=== PATIENT | female | born 1990 | race Caucasian/White ===

== ENCOUNTER 2018-04-27 06:48 | Inpatient (IN) | payer BC ==
[~2018-04-27] VITALS: Ht 160 cm; Wt 94.5 kg
[2018-05-04] MEDS ORDERED: PRENTAB26 PO (16:36)
[2018-05-07 08:47] VITALS: Ht 160 cm; Wt 94.5 kg
[2018-05-07] MEDS ORDERED: LACTATED RINGER'S 1000ML 1,000 ML IV PRN (09:15)
[2018-05-07 09:41] LABS: HEMATOCRIT 35.6 % (37-47); HEMOGLOBIN 12.3 g/dL (12.0-16.0); MEAN CELL VOLUME 88.6 fL (80-100); MEAN CORPUSCULAR HEMOGLOBIN 30.6 pg (25-34); MEAN CORPUSCULAR HGB CONC 34.6 g/dl (32-36); MEAN PLATELET VOLUME 11.3 fL (7.4-10.4); PLATELET COUNT 168 K/uL (130-400); RED CELL DISTRIBUTION WIDTH CV 13.1 % (11.5-14.5); RED CELL DISTRIBUTION WIDTH SD 41.9 fL (36.4-46.3); WHITE BLOOD COUNT 10.08 K/uL (4.8-10.8)
--- NOTE | 2018-05-07 09:41 | Progress Note ---
Progress Note Date of Service May 07, 2018. Progress Note Admit note 28 F P0000 at 41.3 weeks admitted for induction of labor for post-dates. GBS is negative. FHT Cat 1 with no contractions. Cervix 1/70/-2/vertex/mid- position/firm/intact. EFW [address] Cytotec for ripening.
[2018-05-07] MEDS ORDERED: MISOPROSTOL 25 MCG TAB PV ONE (09:45)
[2018-05-07] MEDS ORDERED: NURSING VERBAL MED ORDER ONE (17:00)
[2018-05-07] MEDS ORDERED: BUPIVACAINE 0.25% 30 ML VIAL ONE (17:55)
[2018-05-07] MEDS ORDERED: EpHEDrine SULFATE INJ 50 MG/ML AMP ONE (17:55)
[2018-05-07] MEDS ORDERED: FENTANYL 2MCG/ML ROPIV 1.25MG/ML 100ML BAG ONE (17:56)
[2018-05-07] MEDS ORDERED: FENTANYL CITRATE INJ 50 MCG/1 ML 2 ML VIAL ONE (17:56)
[2018-05-07] MEDS: LACTATED RINGER'S 1000ML 1,000 ML IV SCH ×3 (18:25→23:37)
[2018-05-07] MEDS ORDERED: LACTATED RINGER'S 1000ML 500 ML IV PRN (19:07)
[2018-05-07] MEDS ORDERED: EpHEDrine SULFATE INJ 50 MG/ML AMP IV PRN (19:15)
[2018-05-07] MEDS ORDERED: NALOXONE HCL INJ 0.4 MG/1 ML VIAL/CARP IV PRN (19:15)
[2018-05-07] MEDS: ONDANSETRON INJ 2 MG/ML 2 ML VIAL IV PRN (21:39)
[2018-05-07] MEDS: FENTANYL 2MCG/ML ROPIV 1.25MG/ML 100ML BAG EPI PRN (22:43)
[2018-05-08] MEDS: ONDANSETRON INJ 2 MG/ML 2 ML VIAL IV PRN (01:28)
[2018-05-08] MEDS: FENTANYL 2MCG/ML ROPIV 1.25MG/ML 100ML BAG EPI PRN (02:27)
[2018-05-08] MEDS ORDERED: OXYTOCIN 30 UNITS/500ML NSS IV ONE (03:06)
[2018-05-08] MEDS ORDERED: BENZOCAINE 20% AER SPR 82.5 GM CAN EXT PRN (05:30)
[2018-05-08] MEDS ORDERED: OXYTOCIN 30 UNITS/500ML NSS IV PRN (05:30)
[2018-05-08] MEDS ORDERED: HYDROCORTISONE ACETATE 25 MG SUPP PR PRN (05:30)
[2018-05-08] MEDS ORDERED: LANOLIN OINT EXT PRN (05:30)
[2018-05-08] MEDS ORDERED: SUPERCREAM 0.870 % 15GM JAR EXT PRN (05:30)
--- NOTE | 2018-05-08 05:40 | Vaginal Delivery Summary ---
Vaginal Delivery Summary Delivery Note live male with MLE at delivery due to mild shoulder dystocia. Apgars 7/8 weight 9-11.8. Cord blood collection done and spontaneous delivery of intact placenta. Second degree midline episiotomy repaired with 3/0 Vicryl suture. EBL 300 ml. Final sponge, needle and instrument count are correct. Mom and baby stable.
[2018-05-08] MEDS ORDERED: NURSING VERBAL MED ORDER ONE ×3 (06:15→15:30)
[2018-05-08] MEDS ORDERED: ACETAMINOPHEN/CODEINE 300/30MG TAB ONE (06:34)
[2018-05-08] MEDS ORDERED: ACETAMINOPHEN/CODEINE 300/30MG TAB PO PRN (06:45)
[2018-05-08] MEDS: DOCUSATE SODIUM 100 MG CAP PO SCH ×2 (08:08→19:29)
[2018-05-08] MEDS: FERROUS SULFATE 325 MG TAB PO SCH (08:08)
[2018-05-08] MEDS: PRENATAL VITAMIN TAB PO SCH (08:09)
--- NOTE | 2018-05-08 08:20 | Anesthesia Procedure Note ---
Anesthesia Epidural Removal Nt Date & Time May 08, 2018 at 08:20 Vital Signs Pain Intensity: 6.0 Notes Mental Status: alert / awake / arousable, participated in evaluation Nausea / Vomiting: adequately controlled Pain: adequately controlled Airway Patency, RR, SpO2: stable & adequate BP & HR: stable & adequate Hydration State: stable & adequate Neuraxial Anesthesia: was administered, sensory block is resolving Anesthetic Complications: no major complications apparent, pt satisfied with anesthetic care Epidural: removed without complications, with tip intact
[2018-05-08 10:50] VITALS: BP 137/82; PULSE 85; TEMP 36.6
[2018-05-08] MEDS: ACETAMINOPHEN 325 MG TAB PO PRN ×2 (13:56→19:31)
[2018-05-08 15:00] VITALS: BP 142/86; PULSE 81; TEMP 36.7
[2018-05-08] MEDS: IBUPROFEN 600 MG TAB PO PRN ×2 (15:45→21:22)
[2018-05-08 19:30] VITALS: BP 131/77; PULSE 90; TEMP 36.3; O2SAT 100
--- NOTE | 2018-05-09 00:30 | OB/GYN Progress Note ---
[employer] BUSINESS OBJECTS CONSULTANT Progress Note Date of Service: May 09, 2018. I consented her for HIV testing last night. She had the testing completed. Informed her about the results: Negative Last 24 Hours Test 05/08/18 22:59 HIV (1&2) Ab and P24 Ag, 4th Gener NEG All questions were answered
[2018-05-09] MEDS: ACETAMINOPHEN 325 MG TAB PO PRN ×4 (00:55→23:13)
[2018-05-09 00:58] VITALS: BP 136/85; PULSE 82; TEMP 36.5; O2SAT 99
[2018-05-09 04:20] VITALS: BP 133/83; PULSE 87; TEMP 36.7; O2SAT 99
[2018-05-09] MEDS: IBUPROFEN 600 MG TAB PO PRN ×3 (04:28→20:06)
[2018-05-09 06:36] LABS: HEMATOCRIT 29.7 % (37-47); HEMOGLOBIN 10.1 g/dL (12.0-16.0)
[2018-05-09] MEDS: FERROUS SULFATE 325 MG TAB PO SCH (08:31)
[2018-05-09] MEDS: PRENATAL VITAMIN TAB PO SCH (08:31)
[2018-05-09] MEDS: DOCUSATE SODIUM 100 MG CAP PO SCH ×2 (08:31→19:58)
[2018-05-09 08:35] VITALS: BP 132/85; PULSE 71; TEMP 36.7; O2SAT 98
[2018-05-09] MEDS ORDERED: DIPHTHERIA/TETANUS/PERTUSSIS 0.5 ML SYR/VIAL IM. ONE (09:00)
[2018-05-09] MEDS ORDERED: MEASLES, MUMPS & RUBELLA VIRUS VIAL SQ. ONE (09:00)
--- NOTE | 2018-05-09 09:55 | OB/GYN Progress Note ---
ENTERPRISE APPLICATION ADMINISTRATOR Progress Note Date of Service May 09, 2018. Subjective conversation w/ patient, physical exam Ambulation: ambulating normally Voiding: no voiding problems Passing Gas: Yes Diet Tolerance: Regular Diet Feeding Type: Breast Feeding Objective Vital Signs Date Time Temp Pulse Resp B/P (MAP) Pulse Ox O2 Delivery O2 Flow Rate FiO2 05/09/18 04:20 36.7 87 20 133/83 (100) 99 Room Air 05/09/18 00:58 36.5 82 20 136/85 (102) 99 Room Air 05/09/18 00:58 Room Air 05/08/18 19:30 36.3 90 20 131/77 (95) 100 Room Air 05/08/18 19:30 Room Air 05/08/18 15:00 36.7 81 18 142/86 (104) Room Air 05/08/18 10:50 36.6 85 18 137/82 (100) Room Air 05/08/18 10:50 Room Air Physical Exam General Appearance: WELL-APPEARING, NO APPARENT DISTRESS Abdomen: non tender, soft Fundus: Firm Extremities: non-tender, normal inspection, + pedal edema Laboratory Results Last 24 Hours Test 05/08/18 22:59 05/09/18 06:03 HIV (1&2) Ab and P24 Ag, 4th Gener NEG Hemoglobin 10.1 g/dL Hematocrit 29.7 % Assessment and Plan Post- Day Number: 1 Continue Routine Care: tent d/c in AM
[2018-05-09 17:20] VITALS: BP 141/87; PULSE 79; TEMP 36.6; O2SAT 99
[2018-05-09] MEDS ORDERED: BISACODYL 5 MG TABEC PO SCH (20:00)
[2018-05-10] VITALS (7 sets, daily range): BP systolic 136–155; BP diastolic 71–92; PULSE 76–89; TEMP 36.5–36.7; O2SAT 98–99
[2018-05-10] MEDS: IBUPROFEN 600 MG TAB PO PRN ×4 (03:38→18:40)
[2018-05-10] MEDS ORDERED: BISACODYL 10 MG SUPP PR PRN (07:00)
--- NOTE | 2018-05-10 07:53 | Discharge Instructions ---
Discharge Instructions Date of Service May 10, 2018. Admission Reason for Admission: Induction Discharge Discharge Diagnosis / Problem: Discharge Goals Goal(s): Routine recovery after delivery Medications Continue Dispensed Medications: supercream, dermaplast, lansinoh Activity Recommendations Activity Limitations: as noted below ACTIVITY RECOMMENDATIONS: * Gradual return to full activity over the next 2-3 weeks. * No lifting - nothing heavier than baby over the next 2-3 weeks. * Do not engage in vigorous exercise, sexual activity or sports until cleared by your physician. * Do not drive or operate any motorized equipment until cleared by your physician. * You may shower/bathe daily. BREAST CARE: If you are not breast feeding: * Wear a supportive bra 24 hours a day for one to two weeks. * Avoid stimulating your breasts and nipples as much as possible during the first few weeks after delivery. * When taking a shower, have the warm water hit your back, not breasts. * When your breasts feel full, apply ice packs. Usually three to four times a day helps ease the discomfort. * Take a mild pain medication (Tylenol/Motrin) when you are uncomfortable. If breast feeding: * Use breast milk to lubricate nipples. Lansinoh cream may be used for sore nipples. You do not need to remove cream prior to breast feeding. If using a different brand of cream, check the label for directions regarding removal of cream prior to nursing. * Wear a supportive bra. * If having problems with breasts or breast feeding, call a business analyst consultant or your health care provider. EPISIOTOMY CARE: After delivery, if you have an episiotomy (stitches), the following steps will ease discomfort and aid healing. * For the first 24 hours after delivery, place ice packs next to your episiotomy to help reduce swelling. * After the first 24 hour-period, sitz baths, either portable or in the tub, are suggested. A shower with a shower arm sprayed over the episiotomy may be comforting. * Marlyn care should be done after each voiding and bowel movement. Squirt warm water from a plastic bottle over the perineum (region of the body between the anus and urinary opening) and pat dry. * Use Dermoplast to ease discomfort. Shake container. [place] directly over the episiotomy. * Place a Tucks on a clean sanitary pad next to your episiotomy. OVER THE COUNTER MEDICATION: * For discomfort or pain, you may use Acetaminophen (Tylenol), Ibuprofen (Advil ), or Naproxen (Aleve) following the package directions. * For constipation you may use Colace following the package directions. SPECIAL CARE INSTRUCTIONS: When you are discharged from the hospital, it is important for you to follow the instructions listed below: * During the first week at home, you should be able to care for yourself and your baby. In addition, the usual light household activities are encouraged. * Limit your activities to the way you feel. Do not try to clean the house or move furniture. Be sensible. * If you actively engage in sports and have done so up until the time of your delivery, you may resume these activities as soon as you feel able. This may take up to one month or even longer. Use good judgment. * Continue to take your vitamins for at least six weeks after the of your baby. * Your diet need not be limited unless you were on a special diet before your delivery. Breast-feeding mothers need around 2500 calories per day and at least 64-80 ounces of fluid per day (8 to 10 glasses). * You should eat foods from the four major food groups. Crash diets or fad diets are to be avoided. Eating lean meats, fresh fruits and vegetables, low-fat dairy products, high fiber foods and a regular exercise program, will help you get back to your pre- weight without putting your health at risk. * Constipation is sometimes a problem after delivery. Take a mild laxative as needed. If breast feeding, Milk of Magnesia is acceptable to use. You may use a suppository or Fleets enema if no episiotomy. * A daily shower or tub bath is suggested. Be sure to thoroughly and gently dry the perineum. * A bloody vaginal discharge will usually continue until around four weeks post . A small amount of bleeding may continue for as long as six weeks. Vaginal discharge changes from the bright red bleeding after delivery to pink then brownish and finally yellowish-pink before becoming white and disappearing. * Bleeding may increase with activity. Your first period may come in 4-8 weeks. If you are breast feeding, your period may be delayed even longer. * [place] (sex) can begin whenever both you and your partner feel comfortable and do not have any form of genital infection. It is recommended that you wait until after your return appointment and discuss with your physician. If you have questions, please talk to your health care practitioner. A condom should be used to prevent infection and . * Foreplay, gentle intercourse and lubrication is very important the first several times to prevent pain. A water-based lubricant such as K-Y jelly or Astroglide may be used. * Tampons may be used six weeks after delivery. * Douching should be avoided for 6 weeks after delivery. * If you have RH negative blood and your baby is RH positive, you will receive RHOGAM by injection prior to discharge. The nurse will give you a card to keep with you that has the date and place that you received RHOGAM after delivery. * During your care, you had a Rubella screen done to check for the presence of rubella antibodies in your blood. If your test was negative, you will receive a Rubella vaccine prior to discharge. This vaccine may cause a fever, soreness at the injection site and flu-like symptoms. If these symptoms persist, notify your health care practitioner. is not advised for three months after a Rubella vaccine. There is a higher chance of having a baby with defects if conceived within three months of getting the vaccine. * If you were discharged 24 hours from delivery or before 48 hours: Visiting nurses will come to your home 48 hours after discharge to assess you and your baby. The visiting nurse will meet with you while you are in the hospital to arrange a time and get directions to your home. * Verbalizes understanding of car seat law as reviewed with patient nursing. * Car Seat hand-out given and reviewed with patient by nursing. * Shaken baby information reviewed with patient by nursing. Call you doctor if: * Heavy bleeding (saturating several pads an hour) or passing clots the size of your fist. * A fever >101 degrees F (38.3 degrees C) on two occasions four hours apart and/or chills. * Unusual pain in the pelvic or vaginal areas. * "Baby Blues" lasting longer than two weeks. If you have any questions or concerns, call your health care practitioner at . FOLLOW-UP VISIT: * Please call the office at to schedule a 6 week examination. It is important you keep this appointment. * It is important for you to make arrangements for either yearly or twice yearly check-ups thereafter. . Current Hospital Diet Patient's current hospital diet: Regular OB Diet Discharge Diet Recommended Diet: Regular Diet Pending Studies Studies pending at discharge: no Medical Emergencies . Who to Call and When: Medical Emergencies: If at any time you feel your situation is an emergency, please call 911 immediately. . Non-Emergent Contact Non-Emergency issues call your: Specialist Call Non-Emergent contact if: temperature is above 100.5, your pain is not controlled, your pain is worsening, your pain is unusual for you . . "Provider Documentation" section prepared by Arline Terrazas. .
--- NOTE | 2018-05-10 08:07 | OB/GYN Progress Note ---
CONTRACT OFFICER Progress Note Date of Service: May 10, 2018. Patient is seen and examined. She feels well, no complaints. Ambulating without dizziness Voiding without difficulty Tolerating regular diet with out N&V Bleeding is minimal No fever/ chills/ CP/ SOB/ N&V/ Leg pain Breast feeding without problems Baby is staying Date Time Temp Pulse Resp B/P (MAP) Pulse Ox O2 Delivery O2 Flow Rate FiO2 05/10/18 00:45 99 Room Air 05/10/18 00:45 36.6 80 18 138/87 (104) 99 Room Air 05/09/18 17:20 99 Room Air 05/09/18 17:20 36.6 79 18 141/87 (105) 99 Room Air 05/09/18 08:35 36.7 71 18 132/85 (101) 98 Room Air Test 05/07/18 09:27 05/08/18 22:59 05/09/18 06:03 White Blood Count 10.08 Red Blood Count 4.02 L Hemoglobin 12.3 10.1 L Hematocrit 35.6 L 29.7 L Mean Corpuscular Volume 88.6 Mean Corpuscular Hemoglobin 30.6 Mean Corpuscular Hemoglobin Concent 34.6 RDW Standard Deviation 41.9 RDW Coefficient of Variation 13.1 Platelet Count 168 Mean Platelet Volume 11.3 H HIV (1&2) Ab and P24 Ag, 4th Gener NEG PE: General: Alert, orientedx3, NAD Abd: soft, NT, fundus firm, below Umbilicus Perineum intact, Lochia rubra minimal Ext; NT, no edema AP: 28 yo s/p , ppd# 2 VSS Afebrile doing well Continue routine care until d/c Discussed when to call All questions were answered D/C home /nesting and f/u in office
[2018-05-10] MEDS ORDERED: MAGNESIUM HYDROXIDE SUSP 30 ML UDC PO ONE (08:15)
[2018-05-10] MEDS: DOCUSATE SODIUM 100 MG CAP PO SCH ×2 (08:16→19:56)
[2018-05-10] MEDS: FERROUS SULFATE 325 MG TAB PO SCH (08:16)
[2018-05-10] MEDS: PRENATAL VITAMIN TAB PO SCH (08:16)
[2018-05-10] MEDS: ACETAMINOPHEN 325 MG TAB PO PRN ×2 (15:22→21:41)
[2018-05-10 18:22] LABS: BASO % 0.2 %; BASO ABS # 0.02 K/uL (0-0.2); EOS % 1.3 %; EOS ABS # 0.17 K/uL (0-0.5); HEMOGLOBIN 10.3 g/dL (12.0-16.0); LYMPH % 19.3 %; LYMPH ABS # 2.54 K/uL (1.2-3.4); MEAN CELL VOLUME 89.3 fL (80-100); MEAN CORPUSCULAR HEMOGLOBIN 30.7 pg (25-34); MEAN CORPUSCULAR HGB CONC 34.3 g/dl (32-36); MEAN PLATELET VOLUME 10.9 fL (7.4-10.4); MONO % 4.3 %; MONO ABS # 0.56 K/uL (0.11-0.59); NEUT % 74.1 %; NEUT ABS # 9.74 K/uL (1.4-6.5); PLATELET COUNT 180 K/uL (130-400); RED CELL DISTRIBUTION WIDTH CV 13.2 % (11.5-14.5); WHITE BLOOD COUNT 13.13 K/uL (4.8-10.8)
[2018-05-10 18:44] LABS: ALBUMIN 2.6 gm/dl (3.4-5.0); CALCIUM 8.9 mg/dl (8.5-10.1); CREATININE 0.65 mg/dl (0.60-1.20); POTASSIUM 3.9 mmol/L (3.5-5.1); TOTAL PROTEIN 6.4 gm/dl (6.4-8.2)
[2018-05-10] MEDS: LABETALOL HCL 100 MG TAB PO SCH (18:53)
--- NOTE | 2018-05-10 23:16 | OB/GYN Progress Note ---
ROOFER HELPER VINYL COATING Progress Note Date of Service: May 10, 2018. Patient was discharged [facility] this morning but her BP's were elevated this afternoon Work up was done and started on Labetalol 50 mg bd She feels well no complaints No JAMES/Change in vision/ N&V No dysuria Date Time Temp Pulse Resp B/P (MAP) Pulse Ox O2 Delivery O2 Flow Rate FiO2 05/10/18 19:40 98 Room Air 05/10/18 19:40 36.7 89 18 145/85 (105) 98 Room Air 05/10/18 17:25 153/90 (111) 05/10/18 17:25 154/84 (107) 05/10/18 16:45 36.5 79 16 05/10/18 16:12 155/83 (107) 05/10/18 16:10 99 Room Air 05/10/18 16:10 36.7 76 18 155/92 (113) 99 Room Air 05/10/18 08:17 36.5 79 16 136/87 (103) 99 Room Air 05/10/18 00:45 99 Room Air 05/10/18 00:45 36.6 80 18 138/87 (104) 99 Room Air Last 24 Hours Test 05/10/18 18:08 05/10/18 18:15 Urine Color YELLOW Urine Appearance CLEAR Urine pH 6.0 Urine Specific [place] 1.021 Urine Protein TRACE Urine Glucose (UA) NEG Urine Ketones NEG Urine Occult Blood 2+ Urine Nitrite NEG Urine Bilirubin NEG Urine Urobilinogen NEG Urine Leukocyte Esterase MODERATE Urine WBC (Auto) 10-30 /hpf Urine RBC (Auto) >30 /hpf Urine Hyaline Casts (Auto) 5-10 /lpf Urine Epithelial Cells (Auto) 5-10 /lpf Urine Bacteria (Auto) NEG White Blood Count 13.13 K/uL Red Blood Count 3.36 M/uL Hemoglobin 10.3 g/dL Hematocrit 30.0 % Mean Corpuscular Volume 89.3 fL Mean Corpuscular Hemoglobin 30.7 pg Mean Corpuscular Hemoglobin Concent 34.3 g/dl Platelet Count 180 K/uL Mean Platelet Volume 10.9 fL Neutrophils (%) (Auto) 74.1 % Lymphocytes (%) (Auto) 19.3 % Monocytes (%) (Auto) 4.3 % Eosinophils (%) (Auto) 1.3 % Basophils (%) (Auto) 0.2 % Neutrophils # (Auto) 9.74 K/uL Lymphocytes # (Auto) 2.54 K/uL Monocytes # (Auto) 0.56 K/uL Eosinophils # (Auto) 0.17 K/uL Basophils # (Auto) 0.02 K/uL RDW Standard Deviation 43.0 fL RDW Coefficient of Variation 13.2 % Immature Granulocyte % (Auto) 0.8 % Immature Granulocyte # (Auto) 0.10 K/uL Sodium Level 138 mmol/L Potassium Level 3.9 mmol/L Chloride Level 106 mmol/L Carbon Dioxide Level 27 mmol/L Anion Gap 5.0 mmol/L Blood Urea Nitrogen 9 mg/dl Creatinine 0.65 mg/dl Est Creatinine Clear Calc Drug Dose 138.3 ml/min Estimated GFR () 138.1 Estimated GFR (Non- 119.1 BUN/Creatinine Ratio 14.0 Random Glucose 84 mg/dl Calcium Level 8.9 mg/dl Total Bilirubin 0.3 mg/dl Aspartate Amino Transf (AST/SGOT) 47 U/L Alanine Aminotransferase (ALT/SGPT) 60 U/L Alkaline Phosphatase 110 U/L Lactate Dehydrogenase 211 U/L Total Protein 6.4 gm/dl Albumin 2.6 gm/dl Globulin 3.8 gm/dl Albumin/Globulin Ratio 0.7 U/A suggesting UTI but no symptoms, might be contamination too Plan to send urine cx and repeat labs in am ( AST 47 mildly elevated) Patient understands will f/u for culture
[2018-05-11] MEDS: IBUPROFEN 600 MG TAB PO PRN ×3 (04:05→14:15)
[2018-05-11 04:15] VITALS: BP 137/85; PULSE 85; TEMP 36.4; O2SAT 95
[2018-05-11 07:26] LABS: ALBUMIN 2.5 gm/dl (3.4-5.0); CALCIUM 8.6 mg/dl (8.5-10.1); CREATININE 0.56 mg/dl (0.60-1.20); POTASSIUM 3.6 mmol/L (3.5-5.1); TOTAL PROTEIN 5.9 gm/dl (6.4-8.2)
[2018-05-11 08:00] VITALS: BP 147/92; PULSE 78; TEMP 36.6; O2SAT 99
[2018-05-11] MEDS: PRENATAL VITAMIN TAB PO SCH (08:29)
[2018-05-11] MEDS: DOCUSATE SODIUM 100 MG CAP PO SCH (08:29)
[2018-05-11] MEDS: FERROUS SULFATE 325 MG TAB PO SCH ×2 (08:29→08:32)
[2018-05-11] MEDS: LABETALOL HCL 100 MG TAB PO SCH (08:29)
--- NOTE | 2018-05-11 09:31 | OB/GYN Progress Note ---
FORESTRY SCIENTIST Progress Note Date of Service May 11, 2018. Subjective conversation w/ patient Ambulation: ambulating normally Voiding: no voiding problems Passing Gas: Yes Diet Tolerance: Regular Diet Lochia: Small Feeding Type: Breast Feeding Objective Vital Signs Date Time Temp Pulse Resp B/P (MAP) Pulse Ox O2 Delivery O2 Flow Rate FiO2 05/11/18 08:00 36.6 78 18 147/92 (110) 99 Room Air 05/11/18 04:15 36.4 85 18 137/85 (102) 95 Room Air 05/10/18 23:15 36.7 78 16 136/71 (92) 98 Room Air 05/10/18 19:40 98 Room Air 05/10/18 19:40 36.7 89 18 145/85 (105) 98 Room Air 05/10/18 17:25 153/90 (111) 05/10/18 17:25 154/84 (107) 05/10/18 16:45 36.5 79 16 05/10/18 16:12 155/83 (107) 05/10/18 16:10 99 Room Air 05/10/18 16:10 36.7 76 18 155/92 (113) 99 Room Air Physical Exam General Appearance: WELL-APPEARING, NO APPARENT DISTRESS Abdomen: non tender, soft Fundus: Firm Extremities: non-tender, normal inspection Laboratory Results Last 24 Hours Test 05/10/18 18:08 05/10/18 18:15 05/11/18 06:21 Urine Color YELLOW Urine Appearance CLEAR Urine pH 6.0 Urine Specific [place] 1.021 Urine Protein TRACE Urine Glucose (UA) NEG Urine Ketones NEG Urine Occult Blood 2+ Urine Nitrite NEG Urine Bilirubin NEG Urine Urobilinogen NEG Urine Leukocyte Esterase MODERATE Urine WBC (Auto) 10-30 /hpf Urine RBC (Auto) >30 /hpf Urine Hyaline Casts (Auto) 5-10 /lpf Urine Epithelial Cells (Auto) 5-10 /lpf Urine Bacteria (Auto) NEG White Blood Count 13.13 K/uL Red Blood Count 3.36 M/uL Hemoglobin 10.3 g/dL Hematocrit 30.0 % Mean Corpuscular Volume 89.3 fL Mean Corpuscular Hemoglobin 30.7 pg Mean Corpuscular Hemoglobin Concent 34.3 g/dl Platelet Count 180 K/uL Mean Platelet Volume 10.9 fL Neutrophils (%) (Auto) 74.1 % Lymphocytes (%) (Auto) 19.3 % Monocytes (%) (Auto) 4.3 % Eosinophils (%) (Auto) 1.3 % Basophils (%) (Auto) 0.2 % Neutrophils # (Auto) 9.74 K/uL Lymphocytes # (Auto) 2.54 K/uL Monocytes # (Auto) 0.56 K/uL Eosinophils # (Auto) 0.17 K/uL Basophils # (Auto) 0.02 K/uL RDW Standard Deviation 43.0 fL RDW Coefficient of Variation 13.2 % Immature Granulocyte % (Auto) 0.8 % Immature Granulocyte # (Auto) 0.10 K/uL Sodium Level 138 mmol/L 141 mmol/L Potassium Level 3.9 mmol/L 3.6 mmol/L Chloride Level 106 mmol/L 106 mmol/L Carbon Dioxide Level 27 mmol/L 26 mmol/L Anion Gap 5.0 mmol/L 9.0 mmol/L Blood Urea Nitrogen 9 mg/dl 7 mg/dl Creatinine 0.65 mg/dl 0.56 mg/dl Est Creatinine Clear Calc Drug Dose 138.3 ml/min 160.5 ml/min Estimated GFR () 138.1 145.0 Estimated GFR (Non- 119.1 125.1 BUN/Creatinine Ratio 14.0 13.2 Random Glucose 84 mg/dl 76 mg/dl Calcium Level 8.9 mg/dl 8.6 mg/dl Total Bilirubin 0.3 mg/dl 0.6 mg/dl Aspartate Amino Transf (AST/SGOT) 47 U/L 41 U/L Alanine Aminotransferase (ALT/SGPT) 60 U/L 58 U/L Alkaline Phosphatase 110 U/L 98 U/L Lactate Dehydrogenase 211 U/L Total Protein 6.4 gm/dl 5.9 gm/dl Albumin 2.6 gm/dl 2.5 gm/dl Globulin 3.8 gm/dl 3.4 gm/dl Albumin/Globulin Ratio 0.7 0.7 Assessment and Plan Post- Day Number: 3 Continue Routine Care: discharged
[2018-05-11] MEDS ORDERED: LBT100 PO (10:31)
[2018-05-11 14:30] VITALS: BP_DIAS 92; PULSE 78; TEMP 36.6
== END 2018-05-11 14:30 | disposition home or self-care (01) | DRG 775 ==
LOC: C.LD 05-07 07:30 → C.OBG 05-08 09:04
PROVIDERS: ADMIT Obstetrics & Gynecology; ATTEND Obstetrics & Gynecology
PROC: 3E0P7GC Introduction of Other Therapeutic Substance into Female Reproductive, Via Natural or Artificial Opening (ICD-10-PCS; 2018-05-07)
PROC: 0W8NXZZ Division of Female Perineum, External Approach (ICD-10-PCS; principal; 2018-05-08)
PROC: 10E0XZZ Delivery of Products of Conception, External Approach (ICD-10-PCS; principal; 2018-05-08)
DX: O48.0 Post-term pregnancy (principal); Z3A.41 41 weeks gestation of pregnancy; O66.0 Obstructed labor due to shoulder dystocia; Z37.0 Single live birth; Z88.0 Allergy status to penicillin; Z88.2 Allergy status to sulfonamides

== ENCOUNTER 2018-05-04 15:26 | Outpatient (CLI) | payer BC ==
[~2018-05-04] VITALS: Ht 160 cm; Wt 94.0 kg
[~2018-05-04 15:26] MED LIST: CETITAB27 PO
[2018-05-04 16:33] VITALS: Ht 160 cm; Wt 94.0 kg
[2018-05-04] MEDS ORDERED: PRENTAB26 PO (16:36)
--- NOTE | 2018-05-04 18:33 | Progress Note ---
Progress Note Date of Service May 04, 2018. Progress Note Outpatient Note 28 F P0000 at 41 weeks with increased edema of lower extremities sent over from office for evaluation. Denies headaches or visual disturbances. No nausea or vomiting. No contractions, leakage of fluid or any bleeding. 2+ edema bilaterally of lower extremities. urine with no protein. Exam reveals soft gravid abdomen with no RUQ pain. FHT Cat 1 with no contractions. BP 139/79. Will discharge home. Instructions to call if any changes. Elevate legs above heart and left sided rest advised. Induction scheduled for Monday.
== END 2018-05-04 18:40 | disposition home or self-care (01) ==
LOC: C.OPB 15:26 → C.LD 15:27 → C.OPB 18:40
PROVIDERS: ATTEND Obstetrics & Gynecology
DX: O12.03 Gestational edema, third trimester (principal); O48.0 Post-term pregnancy; Z3A.41 41 weeks gestation of pregnancy

== ENCOUNTER 2019-11-13 10:22 | Inpatient (IN) ==
[2019-11-13] MEDS ORDERED: OXYTOCIN 30 UNITS/500 ML BAG IV PRN ×3 (11:28→20:35)
[2019-11-13 11:51] LABS: Hemoglobin 13.4 g/dL (12.0-16.0); Mean Corpuscular Hemoglobin 30.9 pg (25-34); Mean Corpuscular Volume 89.9 fL (80-100); Mean Platelet Volume 11.3 fL (7.4-10.4); Platelet Count 191 K/uL (130-400); RDW Coefficient of Variation 12.9 % (11.5-14.5); RDW Standard Deviation 42.1 fL (36.4-46.3); Red Blood Count 4.34 M/uL (4.2-5.4); White Blood Count 11.48 K/uL (4.8-10.8)
[2019-11-13 11:58] LABS: Mean Corpuscular Hgb Conc 34.4 g/dL (32-36)
--- NOTE | 2019-11-13 12:05 | History & Physical Report ---
Date of Service November 13, 2019 Assessment & Plan (1) : Admit to L&D, IV fluids, EFM/toco. labs. Will start pitocin. OK for epidural. History of Present Illness Chief Complaint: Kimberly Primary Care Provider: DIANNA PCP 29yo @ 37 11/29, elective induction of labor due to large baby previously (first baby was 9#12oz), also has h/o gest htn and bmi> 30. + movement, no vaginal bleeding, no leaking of fluid. Occasional ctx. Allergies Allergy/AdvReac Type Severity Reaction Status Date / Time bee venom protein (honey bee) Allergy Intermediate HIVES, Verified 11/12/19 22:24 swelling (localized) Sulfa (Sulfonamide Allergy Intermediate HIVES Verified 11/12/19 22:24 Antibiotics) Home Medications Home Medications Medication Instructions Recorded Confirmed Type prenat.vits,brannon,[id number] 1 tab PO DAILY 04/24/19 11/13/19 History aspirin 81 mg PO DAILY 11/12/19 11/13/19 History Patient History Medical History screening for malformation using ultrasonics History of migraine History of varicella vaccination Surgical History S/P hernia repair Social History Preferred Language: Belarusian Communication Ability: Effective Beliefs That Will Affect Care: None marital status: Current Living Situation: Family Other Information That Helps Us Care for You: No Feels Safe at Home: Yes Safety Concerns: Feels Safe At This Time Smoking Status: Never smoker Hx Alcohol Use: No Hx Substance Use: No Review of Systems All systems reviewed & are unremarkable except as noted in HPI & below Physical Exam Physical Exam: SVE: 4/90/-3 FHT Cat 1 [place] rare Constitutional: WD/WN, vitals as above Respiratory: normal respiratory effort, lungs clear to auscultation no respiratory distress Cardiovascular: Rate/Rhythm: regular rate and regular rhythm Gastrointestinal (Abdomen): Inspection/Auscultation: abdomen normal to inspection Percussion/Palpation: abdomen soft; abdomen nontender Gravid. No s/s chorio or abruption. Skin: no rashes, warm and dry Psychiatric: A+Ox3, euthymic affect Results & Data Vital Signs (Past 12 Hours) Vital Signs Temp Pulse Resp BP 11/13/19 10:49 37.1 C 83 18 137/83 11/13/19 10:36 86 137/83 Coding Level of Care Code None Diagnoses Z34.90
[2019-11-13] MEDS: LACTATED RINGER'S 1,000 ML IV PRN ×2 (12:20→17:42)
[2019-11-13] MEDS ORDERED: fentaNYL citrate 100 MCG/2 ML VIAL ONE (16:45)
[2019-11-13] MEDS ORDERED: BUPIVACAINE 0.25% 30 ML VIAL ONE (16:46)
[2019-11-13] MEDS ORDERED: ePHEDrine sulfate 50 MG/ML AMP ONE (16:46)
[2019-11-13] MEDS ORDERED: fentaNYL 2MCG/ML ROPIV 1.25MG/ML 100 ML BAG EPI ONE (16:47)
--- NOTE | 2019-11-13 16:47 | Labor Progress Brief Note ---
Date of Service November 13, 2019 Subjective Sitting on birthing ball. Feeling ctx, but not uncomfortable. FHT Cat 1 Brock Q 2 Would like to get epidural prior to AROM - she feels ready for these next steps. Will consult anesthesia. Results & Data Vital Signs (Past 12 Hours) Vital Signs Temp Pulse Resp BP 11/13/19 16:21 79 145/77 H 11/13/19 15:22 76 136/85 11/13/19 14:30 37.0 C 20 11/13/19 14:21 81 137/81 11/13/19 13:21 86 132/80 11/13/19 12:25 89 137/90 11/13/19 10:49 37.1 C 83 18 137/83 11/13/19 10:36 86 137/83 Coding Level of Care Code None
--- NOTE | 2019-11-13 16:57 | Anesthesiology Consultation ---
Date of Service November 13, 2019 Assessment & Plan (1) Encounter for pre-operative examination: Chart Review Chart Review: Acceptable Risk for Labor Epidural History Height/Weight Height: 5 ft 3 in Weight: 93.894 kg Allergies Allergy/AdvReac Type Severity Reaction Status Date / Time bee venom protein (honey bee) Allergy Intermediate HIVES, Verified 11/12/19 22:24 swelling (localized) Sulfa (Sulfonamide Allergy Intermediate HIVES Verified 11/12/19 22:24 Antibiotics) Medications Home Medications Medication Instructions Recorded Confirmed Last Taken prenat.vits,brannon,[id number] 1 tab PO DAILY 04/24/19 11/13/19 11/12/19 18:00 aspirin 81 mg PO DAILY 11/12/19 11/13/19 11/12/19 18:00 Active Medications Generic Name Dose Route Start Last Admin Trade Name Freq PRN Reason Stop Dose Admin Lactated Ringer's 1,000 mls @ 125 mls/hr 11/13/19 11:28 11/13/19 12:20 Lr IV 11/15/19 11:27 125 mls/hr .Q8H PRN Administration L&D Protocol Protocol Oxytocin 30 units in 500 mls @ 9 mls/hr 11/13/19 11:28 11/13/19 16:25 Pitocin IV 11/15/19 11:27 0.54 units/hr .Q24H PRN 9 mls/hr Labor Induction/Augmentation Titration Protocol 0.54 UNITS/HR Past Medical History Medical History screening for malformation using ultrasonics History of migraine History of varicella vaccination Past Surgical History Surgical History S/P hernia repair Social History Smoking Status: Never smoker Hx Alcohol Use: No Hx Substance Use: No substance use type: does not use Physical Exam Vital Signs Last Vital Signs Temp 37.0 C 11/13/19 14:30 Pulse 79 11/13/19 16:21 Resp 20 11/13/19 14:30 BP 145/77 H 11/13/19 16:21 Testing Laboratory Results 11/13/19 11:36
[2019-11-13] MEDS ORDERED: ePHEDrine sulfate 50 MG/ML AMP IV PRN (17:28)
[2019-11-13] MEDS ORDERED: NALOXONE HCL 0.4 MG/1 ML VIAL/CARP IV PRN (17:28)
[2019-11-13] MEDS ORDERED: fentaNYL 2MCG/ML ROPIV 1.25MG/ML 100 ML BAG EPI PRN (17:28)
[2019-11-13] MEDS ORDERED: ONDANSETRON INJ 2 MG/ML 2 ML VIAL IV PRN (17:28)
[2019-11-13] MEDS ORDERED: NALOXONE HCL 1 MG in SODIUM CHLORIDE 0.9% 1000ML 1,000 ML IV PRN (17:28)
--- NOTE | 2019-11-13 20:20 | Delivery Summary ---
Vaginal Delivery Summary Date of Service November 13, 2019 Vaginal Delivery Summary Vaginal Delivery Summary: Pre-delivery diagnoses: 29yo @ 39 3/7, elective IOL, obesity, h/o gestational hypertension in prior Post-delivery diagnoses: same Procedure: spontaneous vaginal delivery, repair of 1st degree laceration Surgeon: Nicole Navas DO Complications: none Findings: Viable male . Apgars: 8/9 . Weight pending, please see nursery records Estimated blood loss: 300ml Description of delivery: The patient progressed to complete with epidural anesthesia. AROM performed for clear fluid. She then began to push. She spontaneously vaginally delivered a viable from the cephalic presentation. The head delivered in DIA position. The anterior shoulder delivered, followed by the posterior shoulder, followed by the body. The baby was placed on mother's abdomen and a spontaneous cry was heard. Delayed cord clamping was employed, and the cord was doubly clamped and cut. Cord blood was collected for donation to public bank. The placenta was delivered spontaneously intact with a 3-vessel cord. The uterus and vagina were swept of clots and debris. IV pitocin was given. The uterus became firm. The cervix, vagina, and perineum were inspected and a superficial 1st degree perineal lacerations was noted and repaired in standard fashion with 3-0 vicryl. Excellent hemostasis was observed. The mother and baby are recovering in stable and good condition in the room. Sponge, needle and instrument counts were correct x 2. Nicole Navas DO [facility] Vaginal Delivery Charge Vaginal Delivery Codes: 09984 global code for the antepartum, delivery, and post-
[2019-11-13] MEDS ORDERED: OXYCODONE/ACETAMINOPHEN 5mg/325mg TAB PO PRN (20:35)
[2019-11-13] MEDS ORDERED: HYDROCORTISONE ACETATE 25 MG SUPP PR PRN (20:35)
[2019-11-13] MEDS ORDERED: BENZOCAINE 20% AER SPR 82.5 GM CAN EXT PRN (20:35)
[2019-11-13] MEDS ORDERED: bisacodyL 10 MG SUPP PR PRN (20:35)
[2019-11-13] MEDS ORDERED: SUPERCREAM 0.870% 15 GM JAR EXT PRN (20:35)
[2019-11-13] MEDS ORDERED: DIPHTHERIA/TETANUS/PERTUSSIS 0.5 ML SYR/VIAL IM ONE (20:35)
[2019-11-13] MEDS ORDERED: ACETAMINOPHEN 325 MG TAB PO PRN (20:35)
--- NOTE | 2019-11-13 20:48 | Anesthesia Procedure Note ---
Date of Service November 13, 2019 Anesthesia Post Epidural Note Vital Signs Vital Signs: Temp Pulse Resp BP Pulse Ox 37.3 C 90 20 124/66 73 L 11/13/19 19:19 11/13/19 20:46 11/13/19 20:25 11/13/19 20:46 11/13/19 19:59 Pain Intensity Lower Abdomen: Pain Intensity: 0 Notes Mental Status: alert / awake / arousable and participated in evaluation Nausea / Vomiting: adequately controlled Pain: adequately controlled Airway Patency, RR, SpO2: stable & adequate BP & HR: stable & adequate Hydration State: stable & adequate Neuraxial Anesthesia: was administered and sensory block is resolving Anesthetic Complications: no major complications apparent Epidural: Removed without complications and With tip intact
--- NOTE | 2019-11-13 21:02 | Anesthesia Procedure Note ---
Date of Service November 13, 2019 Anesthesia Post Epidural Note Vital Signs Vital Signs: Temp Pulse Resp BP Pulse Ox 37.3 C 94 H 20 131/70 73 L 11/13/19 19:19 11/13/19 21:01 11/13/19 20:25 11/13/19 21:01 11/13/19 19:59 Pain Intensity Lower Abdomen: Pain Intensity: 0 Notes Mental Status: alert / awake / arousable and participated in evaluation Nausea / Vomiting: adequately controlled Pain: adequately controlled Airway Patency, RR, SpO2: stable & adequate BP & HR: stable & adequate Hydration State: stable & adequate Neuraxial Anesthesia: was administered and sensory block is resolving Anesthetic Complications: no major complications apparent Epidural: Removed without complications and With tip intact
[2019-11-13] MEDS: DOCUSATE SODIUM 100 MG CAP PO SCH (22:21)
[2019-11-13] MEDS: IBUPROFEN 600 MG TAB PO PRN (22:24)
[2019-11-14] MEDS: IBUPROFEN 600 MG TAB PO PRN ×4 (03:24→19:52)
[2019-11-14 06:34] LABS: Hematocrit (blood only) 32.4 % (37-47); Hemoglobin 11.1 g/dL (12.0-16.0)
--- NOTE | 2019-11-14 06:37 | Obstetrical Progress Note ---
Date of Service <Alexis Ivey DO - Last Filed: 11/14/19 06:37> November 14, 2019 Assessment & Plan <DO Efren Reddy Last Filed: 11/14/19 06:37> (1) : -PPD#1 -Vitals reviewed, WNL (Tmax 36.7) - GBS -, Blood Type A+ - Clinically stable. - Feels well today. Eating well, voiding well, ambulating well. - Pain well controlled. - Routine post- care - After discharge will have [address] Navas. Day #:: 1 Subjective <Alexis Ivey DO - Last Filed: 11/14/19 06:37> Ambulation: ambulating normally Voiding: no voiding problems Passing Gas:: Yes Diet Tolerance:: regular diet Lochia:: Moderate Feeding Type:: breast feeding Current Pain Level(1-10): 1 (improved with analgesics) Patient is a 29 PPD#1. Patient states that she is feeling well today and that her pain is well controlled. She has no other complaints at this time. Constitutional: no fever and no chills Respiratory: no cough, no dyspnea and no wheezing Cardiovascular: no chest pain, no dyspnea, no palpitations, no edema and no calf pain Breast: no breast pain Gastrointestinal: no abdominal pain, no nausea and no vomiting Genitourinary (female): no dysuria and no difficulty urinating Neurologic: no headache(s) Physical Exam <DO Efren Reddy Last Filed: 11/14/19 06:37> Constitutional WD/WN, vitals as above Respiratory normal respiratory effort, lungs clear to auscultation Cardiovascular Rate/Rhythm: regular rate and regular rhythm Heart Sounds: normal S1 and normal S2; no click, no gallop, no murmur and no cardiac rub Extremities: + edema (+1); no calf tenderness Gastrointestinal (Abdomen) Inspection/Auscultation: abdomen normal to inspection and normal bowel sounds Percussion/Palpation: abdomen soft; abdomen nontender Genitourinary OB Exam Abdomen: + fundal height Fundus: + firm and + relation to umbilicus (1cm below); not tender and not boggy Results & Data <DO Efren Reddy Last Filed: 11/14/19 06:37> Vital Signs (Past 12 Hours) Vital Signs Temp Pulse Pulse Resp BP BP Pulse Ox 11/14/19 03:05 36.7 C 84 16 109/76 98 11/13/19 23:00 36.5 C 86 16 121/81 96 11/13/19 22:19 36.7 C 99 H 20 135/77 11/13/19 22:16 100 H 139/79 11/13/19 22:10 18 11/13/19 22:01 109 H 139/82 11/13/19 21:46 90 136/74 11/13/19 21:31 96 H 136/67 11/13/19 21:16 93 H 131/69 11/13/19 21:10 18 11/13/19 21:01 94 H 131/70 11/13/19 20:55 37.2 C 18 11/13/19 20:46 90 124/66 11/13/19 20:40 20 11/13/19 20:31 95 H 129/71 11/13/19 20:25 20 11/13/19 20:18 111 H 125/72 11/13/19 20:10 20 11/13/19 20:01 130 H 133/97 11/13/19 19:59 108 H 73 L 11/13/19 19:54 109 H 100 11/13/19 19:49 99 H 100 11/13/19 19:46 104 H 123/78 11/13/19 19:44 90 99 11/13/19 19:39 87 100 11/13/19 19:34 90 99 11/13/19 19:33 88 115/66 11/13/19 19:29 90 99 11/13/19 19:24 93 H 98 11/13/19 19:22 85 134/65 11/13/19 19:19 37.3 C 105 H 20 99 11/13/19 19:14 85 100 11/13/19 19:09 81 100 11/13/19 19:04 79 100 11/13/19 19:02 78 142/86 H 11/13/19 18:59 77 100 11/13/19 18:54 79 100 11/13/19 18:51 18 11/13/19 18:49 78 100 11/13/19 18:46 78 146/86 H 11/13/19 18:44 81 100 11/13/19 18:39 79 100 <Nicole Navas DO - Last Filed: 11/14/19 07:21> Co-Signing Physician Notes Resident Physician Supervision Note: I interviewed and examined the patient. Discussed with Dr. Ivey and agree with findings and plan as documented in the note. Any exceptions or clarifications are listed here: PPD#1 doing well. Would like discharge later today. Reviewed instructions. Documented By: Nicole Navas DO Resident Activity Tracking <Alexis Ivey DO - Last Filed: 11/14/19 06:37> Resident Involvement: Resident Care Provided Care Provided: OB Delivery
[2019-11-14] MEDS: DOCUSATE SODIUM 100 MG CAP PO SCH ×2 (08:48→19:52)
[2019-11-14] MEDS: PRENATAL VITAMIN 1 TAB PO SCH (08:49)
[2019-11-14] MEDS ORDERED: bisacodyL 5 MG TABEC PO SCH (20:00)
[2019-11-15] MEDS: IBUPROFEN 600 MG TAB PO PRN (05:58)
--- NOTE | 2019-11-15 06:26 | Obstetrical Progress Note ---
Date of Service <Alexis Ivey DO - Last Filed: 11/15/19 06:26> November 15, 2019 Assessment & Plan <Alexis Ivey DO - Last Filed: 11/15/19 06:26> (1) : -PPD#2 -Vitals reviewed, WNL (Tmax 36.6) - GBS -, Blood Type A+ - Clinically stable. - Feels well today. Eating well, voiding well, ambulating well. - Pain well controlled. - Routine post- care - After discharge will have [address] Navas. Day #:: 2 Subjective <Alexis Ivey DO - Last Filed: 11/15/19 06:26> Ambulation: ambulating normally Voiding: no voiding problems Passing Gas:: Yes Diet Tolerance:: regular diet Lochia:: Moderate Feeding Type:: breast feeding Current Pain Level(1-10): 2 (improved with analgesics) Patient is a 29 PPD#2. Patient states that she is feeling well today and that her pain is well controlled. She has no other complaints at this time. Constitutional: no fever and no chills Respiratory: no cough, no dyspnea and no wheezing Cardiovascular: no chest pain, no dyspnea, no palpitations, no edema and no calf pain Breast: no breast pain Gastrointestinal: no abdominal pain, no nausea and no vomiting Genitourinary (female): no dysuria and no difficulty urinating Neurologic: no headache(s) Physical Exam <Alexis Ivey DO - Last Filed: 11/15/19 06:26> Constitutional WD/WN, vitals as above Respiratory normal respiratory effort, lungs clear to auscultation Cardiovascular Rate/Rhythm: regular rate and regular rhythm Heart Sounds: normal S1 and normal S2; no click, no gallop, no murmur and no cardiac rub Extremities: + edema (+1); no calf tenderness Gastrointestinal (Abdomen) Inspection/Auscultation: abdomen normal to inspection and normal bowel sounds Percussion/Palpation: abdomen soft; abdomen nontender Genitourinary OB Exam Abdomen: + fundal height Fundus: + firm and + relation to umbilicus (2cm below); not tender and not boggy Results & Data <Alexis InfantenDO Schwartz Last Filed: 11/15/19 06:26> Vital Signs (Past 12 Hours) Vital Signs Temp Pulse Resp BP Pulse Ox 11/14/19 23:20 36.3 C L 78 16 125/82 98 11/14/19 19:50 36.4 C L 78 16 126/78 98 <Chasity Flowers MD, FACOG - Last Filed: 11/15/19 07:18> Co-Signing Physician Notes Resident Physician Supervision Note: I was present with Dr. Ivey during the history and exam. I discussed the case with the resident and agree with the findings and plan as documented in the note. Any exceptions or clarifications are listed here: [None] Documented By: Chasity Flowers MD, FACOG Resident Activity Tracking <Alexis Ivey DO - Last Filed: 11/15/19 06:26> Resident Involvement: Resident Care Provided Care Provided: OB Delivery
[2019-11-15] MEDS: PRENATAL VITAMIN 1 TAB PO SCH (07:56)
[2019-11-15] MEDS: DOCUSATE SODIUM 100 MG CAP PO SCH (07:56)
== END 2019-11-15 16:30 | disposition home or self-care (01) | DRG 807 ==
LOC: 4S1 10:22 → 4S2 23:00